=== PATIENT | female | born 2000 | race Caucasian/White ===

== ENCOUNTER 2021-09-15 12:43 | Emergency (ER) | payer BC | END 2021-09-15 14:20 | disposition home or self-care (01) | LOC: CSHERS 12:43 | DX: F41.9 Anxiety disorder, unspecified (principal) | CPT/HCPCS: 99284 ==

== ENCOUNTER 2022-08-04 17:47 | Emergency (ER) | payer BC | END 2022-08-04 18:51 | disposition home or self-care (01) | LOC: CSHERS 17:47 | DX: M25.531 Pain in right wrist (principal); M25.532 Pain in left wrist | CPT/HCPCS: 99283 ==

== ENCOUNTER 2023-11-03 12:40 | Outpatient (CLI) | payer BC | END 2023-11-03 12:41 | disposition home or self-care (01) | LOC: CSHULT 12:40 | PROVIDERS: ATTEND Otolaryngology Otolaryngic Allergy | DX: R59.0 Localized enlarged lymph nodes (principal) | CPT/HCPCS: 76536 ==